=== PATIENT | male | born 1950 | race Caucasian/White ===

== ENCOUNTER 2017-12-09 07:05 | Outpatient (CLI) | payer OTHER, MEDICARE ==
[2017-12-09] VITALS (13 sets, daily range): BP systolic 104–122; BP diastolic 59–90
[~2017-12-09] VITALS: Ht 180.3 cm; Wt 106.6 kg
[2017-12-09] MEDS ORDERED: CRESTOR20 MG PO (07:29)
[2017-12-09] MEDS ORDERED: ASPI-630 PO (07:29)
[2017-12-09] MEDS ORDERED: LISI2.5T PO (07:29)
[2017-12-09] MEDS ORDERED: METO25TA4 PO (07:29)
[2017-12-09] MEDS ORDERED: RANI150T2 PO (07:29)
[2017-12-09] MEDS ORDERED: TAMS0.4C2 PO (07:29)
[2017-12-09 07:36] LABS: BASO # 0.1 x10^3/uL (0.0-0.2); BASO % 1 % (0-3); EOS # 0.3 x10^3/uL (0.0-0.7); EOS % 2 % (0-3); HEMATOCRIT 42.3 % (39.0-53.0); HEMOGLOBIN 14.2 g/dL (13.0-17.5); LYMPH # 1.2 x10^3/uL (1.0-4.8); LYMPH % 7 % (24-48); MEAN CORPUSCULAR HEMOGLOBIN 33 pg (25-35); MEAN CORPUSCULAR HGB CONC 34 g/dL (31-37); MEAN CORPUSCULAR VOLUME 98 fL (79-100); MONO # 0.7 x10^3/uL (0.0-1.1); MONO % 4 % (0-9); NEUT # 14.9 x10^3uL (1.8-7.7); NEUT % 87 % (31-73); PLATELET COUNT 103 x10^3/uL (140-400); RED CELL DISTRIBUTION WIDTH 21.5 % (11.5-14.5); WHITE BLOOD COUNT 17.2 x10^3/uL (4.0-11.0)
[2017-12-09] MEDS ORDERED: fentaNYL PF VIAL 100 MCG/2 ML VIAL IV ONE (07:45)
[2017-12-09] MEDS ORDERED: LIDOCAINE WITH 8.4% SOD BICARB 3 ML DISP.SYRIN. IJ ONE (07:45)
[2017-12-09] MEDS ORDERED: MIDAZOLAM HCL/PF 2 MG/2 ML VIAL. IV ONE (07:45)
[2017-12-09] MEDS ORDERED: NALOXONE 0.4 MG/ML VIAL. ONE (07:47)
[2017-12-09] MEDS ORDERED: MIDAZOLAM HCL/PF 2 MG/2 ML VIAL. ONE (07:47)
[2017-12-09] MEDS ORDERED: FLUMAZENIL 0.5 MG/5 ML VIAL. IV ONE (07:47)
[2017-12-09] MEDS ORDERED: fentaNYL PF VIAL 100 MCG/2 ML VIAL ONE (07:47)
[2017-12-09 07:53] LABS: PROTHROMBIN TIME PATIENT 14.7 SEC (11.7-14.0)
[2017-12-09] MEDS ORDERED: LIDOCAINE WITH 8.4% SOD BICARB 3 ML DISP.SYRIN. ONE (08:25)
--- NOTE | 2017-12-09 09:14 | PDOC ---
MODERATE SEDATION ASSESSMENT RISKS/ALTERNATIVES Risks/Alternatives Risks and alternatives of this type of sedation and procedure discussed with: RISK/ALTERNATIVES: Patient H & P ON CHART H & P H & P on chart and reviewed for co-morbid conditions and appropriate labs. H&P ON CHART: Yes STATUS PREG STATUS ASSESSED: Yes MEDS/ALLERGIES REVIEWED Meds/Allergies Reviewed Medications and Allergies including time and route of recently administered narcotics and sedatives. MEDS/ALLERGIES REVIEWED: Yes ASA RATING ASA RATING: II AIRWAY ASSESSMENT Airway Assessment Airway patency, oral function limitations, presence of caps, crowns, dentures, partials, and ability to extend neck assessed. AIRWAY ASSESSMENT: Yes MALLAMPATI SCORE MALLAMPATI SCORE: II PRE-SEDATION ASSESSMENT PRE-SEDATION ASSESSMENT: Yes DARIA GORDON MD Dec 09, 2017 09:14
--- NOTE | 2017-12-09 09:15 | PDOC ---
BRIEF OPERATIVE NOTE Pre-Op Diagnosis Anemia Post-Op Diagnosis same Procedure Performed CT Bone marrow Biopsy Surgeon Clint Anesthesia Type: Conscious Sedation Specimens Obtained 2 x 3cc aspirates and 1 x 10g cores Complications No immediate DARIA GORDON MD Dec 09, 2017 09:15
[2017-12-09 09:37] LABS: % BANDS 22 % (0-9); % BASOS 3 % (0-3); % EOS 4 % (0-5); % LYMPHS 8 % (24-48); % METAS 3 % (0-0); % MONOS 1 % (0-10); % MYELOS 3 % (0-0); % PROS 2 % (0-0); % SEGS 52 % (35-66)
[2017-12-09 09:38] LABS: PLT ESTIMATE DECREASED (ADEQUATE)
[2017-12-09 09:39] LABS: % OTHERS 2 % (0-0); ANISOCYTOSIS MOD
--- NOTE | 2017-12-09 16:05 | RAD ---
Procedure: CT-guided bone marrow aspiration and biopsy Clinical Indication: 67-year-old male with anemia Sedation: Conscious sedation was administered with a total intraprocedural [id number] time of 10 minutes. The patient was monitored by a qualified independent observer throughout the time of sedation. Please refer to the medical record for exact doses of medications utilized to achieve moderate sedation. Antibiotics: None Fluoro Time: Not applicable Contrast: None Sterility: The procedure was performed in its entirety using appropriate elements of sterile technique. Consent: The procedure was explained in its entirety to the patient or the patients designated aircraft sales representative by a member of the treatment team, including a discussion of the risks, benefits and commonly accepted alternatives to the procedure, as well as the expected consequences of no therapy whatsoever. Discussion of the risks included, but was not limited to, those that are most frequent and those that are rare but possibly severe or life-threatening, as well as the possibility of unforeseen complications. Technique and Findings: Following informed consent, the patient was prepped and draped in usual sterile fashion. Preliminary CT scan of the area of interest was performed. 1% Lidocaine was used to achieve local anesthesia. Under periodic CT surveillance, an 11-gauge needle was advanced through the cortex of the posterior superior iliac spine and 2 separate 2 mL marrow aspirates were obtained and preserved on site by the preschool assistant teacher. A single 11-gauge core biopsy specimen was then obtained and preserved in formalin. The needle was then removed and hemostasis was achieved with manual compression. Complications: No immediate Impression: 1. CT-guided bone marrow aspiration and biopsy as described PQRS Compliance Statement: One or more of the following individualized dose reduction techniques were utilized for this examination: 1. Automated exposure control 2. Adjustment of the mA and/or kV according to patient size 3. Use of iterative reconstruction technique
== END 2017-12-09 11:25 | disposition home or self-care (01) ==
LOC: INTRAD 07:05
PROVIDERS: ATTEND Internal Medicine Hematology & Oncology
DX: C92.10 Chronic myeloid leukemia, BCR/ABL-positive, not having achieved remission (principal); D64.9 Anemia, unspecified; Z79.01 Long term (current) use of anticoagulants
CPT/HCPCS: 36415; 38222; 77012; 85025; 85610; 88184; 88185; 88237; 99152; J2250; J3010; 85007

== ENCOUNTER → 2018-01-02 | Outpatient (CLI) | payer MEDICARE, OTHER ==
[2017-12-09 11:00] VITALS: BP 110/67
[~2018-01-02] MED LIST: ASPI-630 PO; CRESTOR20 MG PO; LISI2.5T PO; METO25TA4 PO; RANI150T2 PO; TAMS0.4C2 PO
--- NOTE | 2018-01-02 08:45 | RAD ---
EXAM: Abdomen sonogram. HISTORY: Myelofibrosis. TECHNIQUE: Sonographic imaging of the abdomen was performed. COMPARISON: None. FINDINGS: The liver is enlarged. No focal hepatic lesion is seen. There is hepatic steatosis. The gallbladder is surgically absent. The kidneys are normal in size. There is a 2.6 cm simple left renal cyst. There is no hydronephrosis. The pancreas is unremarkable. The spleen is enlarged, measuring 15.8 cm x 9.0 cm x 9.7 cm. The aorta is normal in caliber. The inferior vena cava is patent. IMPRESSION: 1. Hepatomegaly and hepatic steatosis. 2. Splenomegaly. 3. 2.6 cm left renal cyst. Electronically signed by: Shira Ramirez MD (01/02/2018 8:42 AM) [place] [id number]
== END | disposition home or self-care (01) ==
LOC: US 08:17
PROVIDERS: ATTEND Internal Medicine Hematology & Oncology
DX: K76.0 Fatty (change of) liver, not elsewhere classified (principal); N28.1 Cyst of kidney, acquired; R16.2 Hepatomegaly with splenomegaly, not elsewhere classified
CPT/HCPCS: 76700

== ENCOUNTER 2018-07-14 07:02 | Outpatient (CLI) | payer MEDICARE, OTHER ==
[~2018-07-14] VITALS: Ht 182.9 cm; Wt 108.9 kg
[2018-07-14] VITALS (10 sets, daily range): BP systolic 92–118; BP diastolic 46–66
[2018-07-14 07:50] LABS: BASO % 1 % (0-3); EOS # 0.2 x10^3/uL (0.0-0.7); EOS % 4 % (0-3); HEMATOCRIT 31.3 % (39.0-53.0); HEMOGLOBIN 10.2 g/dL (13.0-17.5); LYMPH # 0.8 x10^3/uL (1.0-4.8); LYMPH % 12 % (24-48); MEAN CORPUSCULAR HEMOGLOBIN 34 pg (25-35); MEAN CORPUSCULAR HGB CONC 33 g/dL (31-37); MEAN CORPUSCULAR VOLUME 104 fL (79-100); MONO # 0.5 x10^3/uL (0.0-1.1); MONO % 7 % (0-9); NEUT % 76 % (31-73); PLATELET COUNT 57 x10^3/uL (140-400); RED BLOOD COUNT 3.02 x10^6/uL (4.30-5.70); RED CELL DISTRIBUTION WIDTH 20.4 % (11.5-14.5); WHITE BLOOD COUNT 6.6 x10^3/uL (4.0-11.0)
[2018-07-14 07:57] LABS: PROTHROMBIN TIME PATIENT 13.6 SEC (11.7-14.0)
[2018-07-14] MEDS ORDERED: LIDOCAINE 1%/EPI 1:100,000 20 ML VIAL. ONE (08:23)
[2018-07-14] MEDS ORDERED: HEPARIN PF 500 UNIT/5 ML DISP.SYRIN. IV ONE ×2 (08:23→08:45)
[2018-07-14] MEDS ORDERED: TADA5TAB PO (08:29)
[2018-07-14] MEDS ORDERED: LURA20TA PO (08:29)
[2018-07-14] MEDS ORDERED: HYDR-2761 PO (08:29)
[2018-07-14] MEDS ORDERED: TIMO10DR5 LEFTEYE (08:29)
[2018-07-14] MEDS ORDERED: VITA1CAP PO (08:29)
[2018-07-14] MEDS ORDERED: RUXO15TA PO (08:29)
[2018-07-14] MEDS ORDERED: ALBU2.5V8 INH (08:29)
[2018-07-14] MEDS ORDERED: NAPR220C4 PO (08:29)
[2018-07-14] MEDS ORDERED: LIDOCAINE 1%/EPI 1:100,000 20 ML VIAL. IJ ONE (08:30)
[2018-07-14] MEDS ORDERED: MIDAZOLAM HCL/PF 5 MG/5 ML VIAL. IV ONE (08:30)
[2018-07-14] MEDS ORDERED: fentaNYL PF VIAL 100 MCG/2 ML VIAL IV ONE (08:30)
--- NOTE | 2018-07-14 09:09 | PDOC ---
BRIEF OPERATIVE NOTE Pre-Op Diagnosis Myelofibrosis Post-Op Diagnosis same Procedure Performed Port Surgeon Clint Anesthesia Type: Conscious Sedation Findings right IJ port Complications no immediate DARIA GORDON MD Jul 14, 2018 09:09
--- NOTE | 2018-07-14 09:14 | PDOC ---
MODERATE SEDATION ASSESSMENT RISKS/ALTERNATIVES Risks/Alternatives Risks and alternatives of this type of sedation and procedure discussed with: RISK/ALTERNATIVES: Patient H & P ON CHART H & P H & P on chart and reviewed for co-morbid conditions and appropriate labs. H&P ON CHART: Yes STATUS PREG STATUS ASSESSED: Yes MEDS/ALLERGIES REVIEWED Meds/Allergies Reviewed Medications and Allergies including time and route of recently administered narcotics and sedatives. MEDS/ALLERGIES REVIEWED: Yes ASA RATING ASA RATING: II AIRWAY ASSESSMENT Airway Assessment Airway patency, oral function limitations, presence of caps, crowns, dentures, partials, and ability to extend neck assessed. AIRWAY ASSESSMENT: Yes MALLAMPATI SCORE MALLAMPATI SCORE: II PRE-SEDATION ASSESSMENT PRE-SEDATION ASSESSMENT: Yes DARIA GORDON MD Jul 14, 2018 09:14
--- NOTE | 2018-07-14 11:39 | NUR ---
Discharge Note: ADONAY SORTO Discharge instructions and discharge home medications reviewed with Patient and a copy given. All questions have been answered and understanding verbalized. The following instructions and handouts were given: moderate sedation and implanted port instructions Discontinued lines and drains: Peripheral IV intact. Patient discharged to Home or Self Care withFamily [place] Ambulated
[2018-07-14 12:11] LABS: % BANDS 16 % (0-9); % BASOS 1 % (0-3); % EOS 6 % (0-5); % LYMPHS 13 % (24-48); % METAS 2 % (0-0); % MONOS 3 % (0-10); % MYELOS 11 % (0-0); % SEGS 44 % (35-66)
[2018-07-14 12:13] LABS: ANISOCYTOSIS PRESENT; BIZZARE CELLS PRESENT; PLT ESTIMATE DECREASED (ADEQUATE); POIKILOCYTOSIS PRESENT; POLYCHROMASIA PRESENT; TEAR DROP CELLS PRESENT
[2018-07-14 12:14] LABS: % BLASTS 4 % (0-0)
--- NOTE | 2018-07-14 16:20 | RAD ---
Procedure: Port-A-Cath placement Clinical Indication: Adult male with myelofibrosis Sedation: Conscious sedation was administered with a total intraprocedural [id number] time of 33 minutes. The patient was monitored by a qualified independent observer throughout the time of sedation. Please refer to the medical record for exact doses of medications utilized to achieve moderate sedation. Antibiotics: Antibiotic was administered intravenously within 1 hour of the procedure start time. Exposure: Fluoro Time: 0.2 minutes Images: 1 Contrast: None Sterility: All elements of maximal sterile barrier technique including the use of a cap, mask, sterile gown, sterile gloves, large sterile sheet, appropriate hand hygiene, and 2% chlorhexidine for cutaneous antisepsis (or acceptable alternative antiseptic per current guidelines) were followed for this procedure. If ultrasound guidance was utilized, sterile ultrasound techniques were followed including use of a sterile probe cover. . Consent: The procedure was explained in its entirety to the patient or the patients designated entry level marketing representative by a member of the treatment team, including a discussion of the risks, benefits and commonly accepted alternatives to the procedure, as well as the expected consequences of no therapy whatsoever. Discussion of the risks included, but was not limited to, those that are most frequent and those that are rare but possibly severe or life-threatening, as well as the possibility of unforeseen complications. Technique and Findings: Ultrasound interrogation of the right neck revealed patency and compressibility of the internal jugular vein. A hardcopy ultrasound image was recorded as a 21-gauge micropuncture needle was used to gain access to this vessel. The needle was exchanged over a wire for a peel-away sheath. The skin over the ipsilateral anterior chest wall was then copiously anesthetized with 1% lidocaine plus epinephrine, and a small dermatotomy was made. Blunt dissection techniques were used to create a pocket for the port. The port was then tunneled subcutaneously towards the neck dermatotomy then deployed under fluoroscopic guidance through the peel-away sheath such that the distal tip resided in the proximal right atrium. The port was accessed and found to flush and aspirate with ease. The port was packed with heparin. The pocket was copiously irrigated with sterile saline then closed with deep interrupted and running subcuticular 4-0 Vicryl suture. Dermabond was used to close the neck dermatotomy. Complications: No immediate Impression: 1. Ultrasound and fluoroscopic guided port placement as described
== END 2018-07-14 11:35 | disposition home or self-care (01) ==
LOC: INTRAD 07:02
PROVIDERS: ATTEND Internal Medicine Hematology & Oncology
DX: Z45.2 Encounter for adjustment and management of vascular access device (principal); D75.81 Myelofibrosis; Z79.01 Long term (current) use of anticoagulants
CPT/HCPCS: 36415; 36561; 76937; 77001; 85025; 85610; 99152; 99153; A4215; C1788; C1892; J0696; J2250; J3010; J3490; 85007; C1751